=== PATIENT | female | born 1955 | race Caucasian/White ===

== ENCOUNTER 2019-08-31 08:34 | Outpatient (CLI) | payer MEDICARE, SELFPAY ==
--- NOTE | 2019-08-31 08:45 | USCV_ITS ---
Maine Zamora Age: 64 Gender: F : 1955 Exam Date: 08/31/2019 09:39 Ordering Phys: Jamey Arenas MD Technologist: Will Jaen Exam Location: [facility] [place] Indication: MURMUR BP: 130 / 75 HR: 61 Rhythm: Sinus Technical Quality: Very poor MEASUREMENTS (Male / Female) Normal Values 2D ECHO LV Diastolic Diameter PLAX 5.0 cm 4.2 - 5.9 / 3.9 - 5.3 cm LV Systolic Diameter PLAX 3.3 cm IVS Diastolic Thickness 1.0 cm 0.6 - 1.0 / 0.6 - 0.9 cm IVS Systolic Thickness 1.5 cm LVPW Diastolic Thickness 1.3 cm 0.6 - 1.0 / 0.6 - 0.9 cm LVPW Systolic Thickness 1.3 cm LVOT Diameter 2.0 cm LV Ejection Fraction 2D Teich 64.7 % LV Ejection Fraction MOD 2C 42.4 % LV Ejection Fraction 2C AL 41.6 % LA Diameter 3.8 cm LA Width 3.8 cm LA Height 3.7 cm RA Width 3.5 cm RA Height 3.8 cm Aorta at Sinotubular Diameter 2.5 cm M-MODE LV Diastolic Diameter MM 5.8 cm 4.2 - 5.9 / 3.9 - 5.3 cm LV Systolic Diameter MM 4.2 cm LV Ejection Fraction MM Teich 52.4 % IVS Diastolic Thickness MM 1.4 cm 0.6 - 1.0 / 0.6 - 0.9 cm IVS Systolic Thickness MM 1.4 cm LVPW Diastolic Thickness MM 1.6 cm 0.6 - 1.0 / 0.6 - 0.9 cm LVPW Systolic Thickness MM 2.1 cm RV Diastolic Diameter MM 2.1 cm Aortic Annulus Diameter 3.3 cm LA Ao Ratio MM 1.1 MV E Point Septal Separation 1.1 cm DOPPLER AV Peak Velocity 258.0 cm/s LVOT Peak Velocity 73.0 cm/s AV Area Cont Eq vti 1.0 cm squared AV Area Cont Eq pk 0.9 cm squared MV Area PHT 5.0 cm squared Mitral E to A Ratio 1.2 MV E' Velocity 9.0 cm/s Mitral E to MV E' Ratio 10.5 Mitral E to LV E' Lateral Ratio 11.2 Mitral E to LV E' Septal Ratio 9.9 TR Peak Velocity 253.0 cm/s TR Peak Gradient 25.5 mmHg TV Peak E Velocity 78.0 cm/s Right Atrial Pressure 3.0 mmHg Pulmonary Artery Systolic Pressu 28.6 mmHg PV Peak Velocity 125.0 cm/s FINDINGS Left Ventricle Normal left ventricular cavity size. Normal left ventricular systolic function. No regional wall motion abnormalities. Left ventricular ejection fraction is estimated at 55 %. Grade I/IV diastolic dysfunction (abnormal relaxation filling pattern), normal to mildly elevated filling pressures. Right Ventricle The right ventricle is normal in size and function. Right Atrium The right atrium is normal in size. Left Atrium Moderately increased left atrial size. Mitral Valve Moderately thickened mitral valve. No mitral valve stenosis. Mild mitral valve regurgitation. Aortic Valve Severe aortic valve calcification. Moderate aortic valve stenosis, mean gradient 11.9 mmHg, AUDELIA 1 cm squared. Mild aortic valve regurgitation. Velocity across the aortic valve is 2.5 m/s. Tricuspid Valve Structurally normal tricuspid valve without significant stenosis or regurgitation. Pulmonary artery systolic pressure is normal. Pulmonic Valve Structurally normal pulmonic valve without significant stenosis. There is no pulmonic regurgitation. Pericardium Normal pericardium without effusion. Aorta Normal ascending aorta dimension. CONCLUSIONS 1-Normal left ventricular cavity size. Normal left ventricular systolic function. No regional wall motion abnormalities. Left ventricular ejection fraction is estimated at 55 %. Grade I/IV diastolic dysfunction (abnormal relaxation filling pattern), normal to mildly elevated filling pressures. 2-Severe aortic valve calcification. Moderate aortic valve stenosis, mean gradient 11.9 mmHg, AUDELIA 1 cm squared. Mild aortic valve regurgitation. Velocity across the aortic valve is 2.5 m/s. -Moderately increased left atrial size. 6-There is no pericardial effusion. 7-Pulmonary artery systolic pressure is within normal limits. 8-Right atrial pressure is around 5 mm of mercury. 9-There are no prior echocardiogram studies to compare. Nathan Mascorro MD (Electronically Signed) Final Date: 31 August 2019 20:24 S
--- NOTE | 2019-08-31 08:45 | USCV_ITS ---
Maine Zamora Age: 64 Gender: F : 1955 Exam Date: 08/31/2019 09:51 Ordering Phys: Jamey Arenas MD Technologist: Will Jean [place] [facility] [place]: RT SIDE BRUIT Risk Factors: Smoker Previous Vascular Surgery: STENT Right Brachial BP: / Left Brachial BP: / Right Left Velocity (cm/s) Spectral Plaque Velocity (cm/s) Spectral Plaque Syst/Diast Broadening Syst/Diast Broadening 27.20/ 6.40 Prox CCA 82.30 / 23.30 25.10/ 8.50 Hetro Mid CCA 77.70 / 23.30 16.80/ 6.20 Hetro Distal CCA 68.40 / 18.60 Hetro 468.87/176.60 Luis Prox ICA 172.50/ 37.30 Hetro 491.30/162.40 Luis Mid ICA 205.10/ 48.60 Luis 122.70/38.80 Hetro Distal ICA 164.70/ 64.80 Hetro 131.00 ECA 111.90 18.51 ICA/CCA 2.49 Antegrade Vertebral Antegrade 121.1/ 28.75 cm/s 37.40/ 12.80 cm/s 5 Tri Subclavian Tri 144.5 98.20 0 FINDINGS Comparison: none available. Diffuse bilateral scattered calcified plaque and intimal thickening throughout the common carotid arteries and extending through the bifurcation. Extensive plaque greater on the right. Severe right ICA stenosis with abnormal waveforms and velocities. Moderate left ICA stenosis. Bilateral antegrade vertebral arteries. CONCLUSIONS Right ICA stenosis 70-99%. Stenosis approaching 99%. Left ICA stenosis 50-69%. Report called by handbag framer at time of exam. Dr. Arianna Martínez DO (Electronically Signed) Final Date: 31 August 2019 12:26 S
== END 2019-08-31 08:35 | disposition home or self-care (01) ==
LOC: RAD 08:40
PROVIDERS: Family Provider Family Medicine; Visit Provider Family Medicine
DX: G45.9 Transient cerebral ischemic attack, unspecified (principal); I25.10 Atherosclerotic heart disease of native coronary artery without angina pectoris; R01.1 Cardiac murmur, unspecified; I70.0 Atherosclerosis of aorta; I35.1 Nonrheumatic aortic (valve) insufficiency
CPT/HCPCS: 93306; 93880